=== PATIENT | female | born 2005 | race Caucasian/White ===

== ENCOUNTER 2025-03-22 03:54 | Emergency (ER) | payer OTHER ==
[~2025-03-22] VITALS: Ht 157.5 cm; Wt 71.0 kg
[2025-03-22 03:56] VITALS: O2SAT 99
[2025-03-22] MEDS: ACETAMINOPHEN 325MG TABLET PO ONE (04:45)
[2025-03-22 04:49] LABS: BASOPHILS % 0.5 % (0.0-2.0); EOSINOPHILS % 0.4 % (0.0-5.0); HEMATOCRIT. 41.4 % (36.0-48.0); HEMOGLOBIN. 13.9 g/dL (12.0-16.0); LYMPHOCYTES % 29.7 % (20.0-50.0); MEAN PLATELET VOLUME 10.3 fl (7.4-10.4); MONOCYTES % 3.3 % (2.0-8.0); NEUTROPHILS % 66.1 % (40.0-76.0); PLATELET 248 x1000/uL (130-400); RED BLOOD CELL COUNT 4.74 mill/uL (4.2-5.4); RED CELL DISTRIBUTION WIDTH 14.4 % (11.6-14.6)
[2025-03-22] MEDS: MORPHINE SULFATE 4 MG/ML INJ (FOR IV/IM USE) IV STA (05:37)
[2025-03-22 06:04] LABS: HCG SCREEN NEGATIVE
[2025-03-22] MEDS ORDERED: TOPUD PO (09:17)
[2025-03-22 09:48] VITALS: BP 109/68; PULSE 102; RESP 20; TEMP 36.9; O2SAT 97
== END 2025-03-22 09:46 | disposition home or self-care (01) ==
LOC: ER 03:54
DX: S90.02XA Contusion of left ankle, initial encounter (principal); M79.18 Myalgia, other site; Z79.899 Other long term (current) drug therapy; V49.9XXA Car occupant (driver) (passenger) injured in unspecified traffic accident, initial encounter; Y93.89 Activity, other specified; Y92.89 Other specified places as the place of occurrence of the external cause; Y99.8 Other external cause status
CPT/HCPCS: 84703; 85025; 36415; 93880; 71045; 73610; 74176; 76705; 93005; 96374; 99285; J2270; Z7610 ×4; A6449; A4606